=== PATIENT | female | born 1950 | race Caucasian/White ===

== ENCOUNTER 2025-01-18 09:52 | Outpatient (CLI) | payer OTHER | END 2025-01-18 09:53 | disposition home or self-care (01) | LOC: CSHCT 09:52 | PROVIDERS: ATTEND Family Medicine | DX: E78.5 Hyperlipidemia, unspecified (principal); I25.10 Atherosclerotic heart disease of native coronary artery without angina pectoris; I25.84 Coronary atherosclerosis due to calcified coronary lesion | CPT/HCPCS: 75571 ==